=== PATIENT | female | born 1980 | race African-American/Black ===

== ENCOUNTER 2018-01-25 01:40 | Emergency (ER) | payer OTHER ==
[2018-01-25] MEDS: dexameTHASONE 20 MG/5 ML VIAL (J1100) IV (02:33)
[2018-01-25] MEDS: KETOROLAC 30 MG/ML VIAL (J1885) IV (02:33)
== END 2018-01-25 03:19 | disposition home or self-care (01) ==
LOC: M ED 01:40
DX: M53.3 Sacrococcygeal disorders, not elsewhere classified (principal)
CPT/HCPCS: J1100

== ENCOUNTER 2019-10-24 02:50 | Emergency (ER) | payer OTHER ==
[~2019-10-24] VITALS: Ht 162.6 cm; Wt 76.4 kg
[~2019-10-24 02:50] MED LIST: KETO10TAB PO; PRED20TA PO
[2019-10-24] MEDS ORDERED: LORazepam 2 MG/ML VIAL (J2060) IV STA (03:16)
[2019-10-24] MEDS ORDERED: METHOCARBAMOL 1,000 MG/10 ML VIAL (J2800) IV ONE (03:30)
[2019-10-24 03:55] VITALS: BP 122/75
[2019-10-24] MEDS ORDERED: KETO10TAB PO (14:00)
== END 2019-10-24 03:57 | disposition home or self-care (01) ==
LOC: M ED 02:50
DX: M62.830 Muscle spasm of back (principal); S29.011A Strain of muscle and tendon of front wall of thorax, initial encounter; X50.0XXA Overexertion from strenuous movement or load, initial encounter; Y92.89 Other specified places as the place of occurrence of the external cause; Y93.89 Activity, other specified; Y99.1 Military activity
CPT/HCPCS: 96372; 96374; 96375; 99283; 99284; J1885; J2060; J2800

== ENCOUNTER 2019-10-24 11:14 | Emergency (ER) | payer OTHER ==
[~2019-10-24] VITALS: Ht 162.6 cm; Wt 76.4 kg
[2019-10-24] MEDS ORDERED: ACETAMINOPHEN 325 MG TAB PO ONE (12:30)
[2019-10-24] MEDS ORDERED: LIDOCAINE 5% (LIDODERM) PATCH TD ONE (12:30)
[2019-10-24] MEDS ORDERED: KETOROLAC 60 MG/2 ML VIAL (J1885) IM ONE (12:30)
[2019-10-24 13:43] VITALS: BP 120/84
[2019-10-24] MEDS ORDERED: KETO10TAB PO (14:00)
[2019-10-24] MEDS ORDERED: **NOTE PATIENT COMMENT** MISC XX SCH (21:00)
== END 2019-10-24 14:41 | disposition home or self-care (01) ==
LOC: M ED 11:14
DX: S29.011A Strain of muscle and tendon of front wall of thorax, initial encounter (principal); M62.830 Muscle spasm of back; X50.0XXA Overexertion from strenuous movement or load, initial encounter; Y92.89 Other specified places as the place of occurrence of the external cause; Y93.89 Activity, other specified; Y99.1 Military activity